=== PATIENT | female | born 1990 | race Caucasian/White ===

== ENCOUNTER 2019-01-11 18:43 | Emergency (ER) | payer BC, OTHER ==
[~2019-01-11] VITALS: Ht 162.6 cm; Wt 92.3 kg
[2019-01-11] MEDS ORDERED: POLYSPORIN TOPICAL OINTMENT 15GM TOP ONE (19:45)
[2019-01-11] MEDS ORDERED: CLOB0.0548 TOP (19:45)
[2019-01-11 19:56] VITALS: BP 130/96
== END 2019-01-11 20:00 | disposition home or self-care (01) ==
LOC: M ED 18:43
DX: S90.822A Blister (nonthermal), left foot, initial encounter (principal); L30.8 Other specified dermatitis; X58.XXXA Exposure to other specified factors, initial encounter; Y92.89 Other specified places as the place of occurrence of the external cause; Y93.9 Activity, unspecified; Y99.9 Unspecified external cause status

== ENCOUNTER → 2019-06-01 | Outpatient (REF) | payer OTHER ==
[~2019-06-01] MED LIST: CLOB0.0548 TOP
== END ==
LOC: M SFHCWAGY 09:39
PROVIDERS: ATTEND Advanced Practice Midwife
DX: Z12.4 Encounter for screening for malignant neoplasm of cervix (principal); R87.613 High grade squamous intraepithelial lesion on cytologic smear of cervix (HGSIL)

== ENCOUNTER → 2019-06-14 | Outpatient (CLI) | payer OTHER ==
[2019-06-14 11:48] LABS: HEMOGLOBIN 13.9 g/dl (12.0-15.5); MEAN CORPUSCULAR HEMOGLOBIN 28.7 pg (27.0-33.0); MEAN CORPUSCULAR HGB CONC 33.1 g/dl (32.0-36.5); MEAN CORPUSCULAR VOLUME 86.8 fl (80.0-96.0); PLATELET COUNT, AUTOMATED 338 10^3/uL (150-450); RED BLOOD COUNT 4.84 10^6/uL (4.00-5.40); WHITE BLOOD COUNT 8.1 10^3/uL (4.0-10.0)
[2019-06-14 12:17] LABS: FREE T4 1.22 NG/DL (0.76-1.46); THYROID STIMULATING HORMONE 0.859 uIU/ML (0.358-3.740)
[2019-06-16 14:09] LABS: TESTOSTERONE FREE (DIRECT) 5.1 pg/mL (0.0-4.2); VITAMIN D 1,25 DIHYDROXY 69.4 pg/mL (19.9-79.3)
== END ==
LOC: M PLALAB 08:48
PROVIDERS: ATTEND Advanced Practice Midwife
DX: N92.1 Excessive and frequent menstruation with irregular cycle (principal)

== ENCOUNTER → 2019-06-14 | Outpatient (CLI) | payer OTHER ==
--- NOTE | 2019-06-14 10:07 | REP ---
PELVIC SONOGRAPHY: HISTORY: Heavy irregular menstrual cycles. FINDINGS: Transabdominal and transvaginal scanning are performed. Uterine dimensions are normal at 8.6 x 4.3 x 5.6 cm. Endometrial echo is 0.5 cm thick and centrally placed. No focal uterine mass lesion is seen. Right ovary measures 2.7 x 2.2 x 2.0 cm. It has a normal appearance. Doppler flow is present in the right ovary. Left ovary dimensions are 3.1 x 2.3 x 2.8 cm. Doppler flow is present in the left ovary. There is a 4.0 x 2.9 x 3.7 cm cyst anterolateral to the left ovary. IMPRESSION: Simple appearing 4.0 cm cyst anterolaterally adjacent to the left ovary. Otherwise negative pelvic sonography.
== END ==
LOC: M WHC 08:00
PROVIDERS: ATTEND Advanced Practice Midwife
DX: N83.202 Unspecified ovarian cyst, left side (principal)

== ENCOUNTER → 2019-06-30 | Outpatient (REF) | payer OTHER | LOC: M PLALAB 15:10 | PROVIDERS: ATTEND Advanced Practice Midwife | DX: E28.2 Polycystic ovarian syndrome (principal); R87.613 High grade squamous intraepithelial lesion on cytologic smear of cervix (HGSIL) ==

== ENCOUNTER → 2019-07-04 | Outpatient (REF) | payer OTHER ==
[2019-07-04 18:30] LABS: HEMOGLOBIN A1c 5.4 %
== END ==
LOC: M PLALAB 16:51
PROVIDERS: ATTEND Advanced Practice Midwife
DX: E28.2 Polycystic ovarian syndrome (principal)

== ENCOUNTER → 2019-07-28 | Outpatient (REF) | payer OTHER | LOC: M SFHCWAGY 16:51 | PROVIDERS: ATTEND Obstetrics & Gynecology | DX: R87.613 High grade squamous intraepithelial lesion on cytologic smear of cervix (HGSIL) (principal) ==

== ENCOUNTER → 2020-06-14 | Outpatient (REF) | payer OTHER | LOC: M SFHCWAGY 19:02 | PROVIDERS: ATTEND Advanced Practice Midwife | DX: Z01.411 Encounter for gynecological examination (general) (routine) with abnormal findings (principal) ==

== ENCOUNTER → 2021-01-30 | Outpatient (REF) | payer OTHER ==
[2021-01-30 13:53] LABS: APPEARANCE, URINE CLEAR (CLEAR); BACTERIA, URINE AUTO NEGATIVE (NEGATIVE); BILIRUBIN, URINE AUTO NEGATIVE (NEGATIVE); BLOOD, URINE BLOOD NEGATIVE (NEGATIVE); COLOR, URINE COLORLESS (YELLOW); GLUCOSE, URINE (UA) AUTO NEGATIVE (NEGATIVE); KETONE, URINE AUTO NEGATIVE (NEGATIVE); LEUKOCYTE ESTERASE, URINE AUTO NEGATIVE (NEGATIVE); NITRITE, URINE AUTO NEGATIVE (NEGATIVE); PROTEIN, URINE AUTO NEGATIVE (NEGATIVE); RBC, URINE AUTO 0 /HPF (0-3); SPECIFIC GRAVITY URINE AUTO 1.001 (1.002-1.035); SQUAMOUS EPITHELIAL CELL UR AU 1 /HPF (0-6); UROBILINOGEN, URINE AUTO 0.2 mg/dL (0.0-2.0); WBC, URINE AUTO 0 /HPF (0-3)
== END ==
LOC: M LAB REF 12:41
PROVIDERS: ATTEND Physician Assistant
DX: R30.0 Dysuria (principal)

== ENCOUNTER → 2021-04-04 | Outpatient (REF) | LOC: M EMP 08:42 | PROVIDERS: ATTEND Family Medicine | DX: Z20.822 Contact with and (suspected) exposure to COVID-19 (principal) ==

== ENCOUNTER → 2021-04-17 | Outpatient (REF) | LOC: M EMP 13:28 | PROVIDERS: ATTEND Family Medicine | DX: Z11.52 Encounter for screening for COVID-19 (principal) ==

== ENCOUNTER → 2021-06-18 | Outpatient (REF) | payer OTHER | LOC: M PLALAB 08:41 | PROVIDERS: ATTEND Advanced Practice Midwife | DX: Z12.4 Encounter for screening for malignant neoplasm of cervix (principal); R87.613 High grade squamous intraepithelial lesion on cytologic smear of cervix (HGSIL); R87.810 Cervical high risk human papillomavirus (HPV) DNA test positive ==

== ENCOUNTER → 2021-08-06 | Outpatient (REF) | payer OTHER | LOC: M SFHCWAGY 17:29 | PROVIDERS: ATTEND Obstetrics & Gynecology | DX: Z12.4 Encounter for screening for malignant neoplasm of cervix (principal) ==

== ENCOUNTER → 2021-08-06 | Outpatient (REF) | payer OTHER | LOC: M PLALAB 15:27 | PROVIDERS: ATTEND Obstetrics & Gynecology | DX: Z53.20 Procedure and treatment not carried out because of patient's decision for unspecified reasons (principal) ==

== ENCOUNTER → 2021-09-08 | Outpatient (REF) | payer OTHER | LOC: M SFHCWAGY 17:13 | PROVIDERS: ATTEND Obstetrics & Gynecology | DX: R87.613 High grade squamous intraepithelial lesion on cytologic smear of cervix (HGSIL) (principal) ==

== ENCOUNTER → 2022-04-24 | Outpatient (CLI) | payer OTHER ==
[2022-04-24 14:12] LABS: HEMATOCRIT 43.5 % (36.0-47.0); HEMOGLOBIN 14.4 g/dl (12.0-15.5); MEAN CORPUSCULAR HEMOGLOBIN 29.8 pg (27.0-33.0); MEAN CORPUSCULAR HGB CONC 33.1 g/dl (32.0-36.5); MEAN CORPUSCULAR VOLUME 89.9 fl (80.0-96.0); PLATELET COUNT, AUTOMATED 253 10^3/uL (150-450); RED BLOOD COUNT 4.84 10^6/uL (4.00-5.40); WHITE BLOOD COUNT 11.1 10^3/uL (4.0-10.0)
[2022-04-24 15:10] LABS: HIV 1&2 SCREEN CENTAUR NEGATIVE (NEGATIVE)
[2022-04-24 15:19] LABS: HEPATITIS C VIRUS ABY INDEX 0.1 INDEX (<0.8)
== END ==
LOC: M PLALAB 10:51
PROVIDERS: ATTEND Advanced Practice Midwife
DX: O34.41 Maternal care for other abnormalities of cervix, first trimester (principal); Z3A.00 Weeks of gestation of pregnancy not specified

== ENCOUNTER → 2022-05-27 | Outpatient (REF) | payer OTHER | LOC: M SFHCWAGY 12:55 | PROVIDERS: ATTEND Advanced Practice Midwife | DX: O34.41 Maternal care for other abnormalities of cervix, first trimester (principal); Z3A.00 Weeks of gestation of pregnancy not specified ==

== ENCOUNTER → 2022-06-22 | Outpatient (CLI) | payer OTHER | LOC: M WHC 10:13 | PROVIDERS: ATTEND Obstetrics & Gynecology | DX: Z34.93 Encounter for supervision of normal pregnancy, unspecified, third trimester (principal); Z3A.20 20 weeks gestation of pregnancy ==

== ENCOUNTER → 2022-07-17 | Outpatient (CLI) | payer OTHER | LOC: M WHC 12:00 | PROVIDERS: ATTEND Obstetrics & Gynecology | DX: Z36.2 Encounter for other antenatal screening follow-up (principal) ==

== ENCOUNTER → 2022-08-19 | Outpatient (CLI) | payer OTHER ==
[2022-08-19 09:18] LABS: HEMATOCRIT 36.4 % (36.0-47.0); MEAN CORPUSCULAR HEMOGLOBIN 30.7 pg (27.0-33.0); MEAN CORPUSCULAR VOLUME 93.1 fl (80.0-96.0); PLATELET COUNT, AUTOMATED 223 10^3/uL (150-450); RED BLOOD COUNT 3.91 10^6/uL (4.00-5.40); WHITE BLOOD COUNT 11.6 10^3/uL (4.0-10.0)
[2022-08-19 11:04] LABS: GC DNA AMPLIFICATION NEGATIVE (NEGATIVE)
== END ==
LOC: M LAB 07:27
PROVIDERS: ATTEND Obstetrics & Gynecology
DX: Z34.92 Encounter for supervision of normal pregnancy, unspecified, second trimester (principal)

== ENCOUNTER → 2022-08-21 | Outpatient (CLI) | payer OTHER | LOC: M LAB 07:39 | PROVIDERS: ATTEND Obstetrics & Gynecology | DX: O99.810 Abnormal glucose complicating pregnancy (principal); Z3A.00 Weeks of gestation of pregnancy not specified ==

== ENCOUNTER → 2022-09-15 | Outpatient (REF) | LOC: M EMP 10:54 | PROVIDERS: ATTEND Family Medicine | DX: Z20.822 Contact with and (suspected) exposure to COVID-19 (principal) ==

== ENCOUNTER → 2022-10-21 | Outpatient (REF) | payer OTHER | LOC: M PLALAB 15:34 | PROVIDERS: ATTEND Advanced Practice Midwife | DX: O09.293 Supervision of pregnancy with other poor reproductive or obstetric history, third trimester (principal) ==

== ENCOUNTER → 2022-10-21 | Outpatient (CLI) | payer OTHER ==
[~2022-10-21] MED LIST changes: +PRENTAB9 PO; +TUMS500C PO
[2022-10-21 18:00] LABS: HEMATOCRIT 36.3 % (36.0-47.0); HEMOGLOBIN 11.8 g/dl (12.0-15.5); MEAN CORPUSCULAR HEMOGLOBIN 27.8 pg (27.0-33.0); MEAN CORPUSCULAR HGB CONC 32.5 g/dl (32.0-36.5); MEAN CORPUSCULAR VOLUME 85.4 fl (80.0-96.0); PLATELET COUNT, AUTOMATED 247 10^3/uL (150-450); RED BLOOD COUNT 4.25 10^6/uL (4.00-5.40); WHITE BLOOD COUNT 14.4 10^3/uL (4.0-10.0)
[2022-10-21 18:20] LABS: URIC ACID 4.3 MG/DL (3.1-7.8)
[2022-10-21 18:22] LABS: LDH LACTATE DEHYDROGENASE 188 U/L (120-246)
[2022-10-21 18:23] LABS: ALT/SGPT 13 U/L (7.0-40); AST/SGOT < 8 U/L (<34); BILIRUBIN,TOTAL 0.4 MG/DL (0.3-1.2); CREATININE FOR GFR 0.57 MG/DL (0.55-1.30); GLOMERULAR FILTRATION RATE > 60.0 (>60)
[2022-10-21 18:29] LABS: TOTAL PROTEIN,RANDOM URINE < 6.0 MG/DL (0.0-14.0)
== END ==
LOC: M LAB 16:32
PROVIDERS: ATTEND Advanced Practice Midwife
DX: O16.3 Unspecified maternal hypertension, third trimester (principal); Z3A.00 Weeks of gestation of pregnancy not specified

== ENCOUNTER → 2022-10-23 | Outpatient (CLI) | payer MEDICAID, OTHER | LOC: M WHC 09:09 | PROVIDERS: ATTEND Obstetrics & Gynecology | DX: O26.843 Uterine size-date discrepancy, third trimester (principal); Z3A.38 38 weeks gestation of pregnancy ==

== ENCOUNTER 2022-10-26 07:20 | Inpatient (IN) | payer MEDICAID ==
[~2022-10-26] VITALS: Ht 160 cm; Wt 101.8 kg
[2022-10-26] VITALS (13 sets, daily range): BP systolic 126–145; BP diastolic 81–95
[~2022-10-26 07:20] MED LIST changes: -PRENTAB9 PO; -TUMS500C PO
[2022-10-26] MEDS ORDERED: LIDOCAINE 1% MDV 20ML VIAL INFIL PRN (07:35)
[2022-10-26] MEDS ORDERED: OXYTOCIN INJ 10UNITS/ML 1ML VIAL IM PRN (07:35)
[2022-10-26] MEDS ORDERED: LACTATED RINGER'S 1000 ML IV STA (07:35)
[2022-10-26] MEDS ORDERED: TRANEXAMIC ACID INJection 1,000 MG in NS 100 ML IV PRN (07:35)
[2022-10-26] MEDS ORDERED: OXYTOCIN DRIP 30 UNITS in IV 1 EA IV PRN (07:35)
[2022-10-26] MEDS ORDERED: CARBOPROST TROMETHAMINE 250 MCG/ML AMP IM PRN (07:35)
[2022-10-26] MEDS ORDERED: PRENTAB9 PO (08:23)
[2022-10-26] MEDS ORDERED: TUMS500C PO (08:23)
[2022-10-26] MEDS ORDERED: HOME MED LIST COMPLETE! XX SCH (08:25)
[2022-10-26] MEDS: miSOPROStol 50MCG 1/2 TABLET PO SCH ×4 (08:59→21:40)
[2022-10-26 09:28] LABS: TOTAL PROTEIN,RANDOM URINE 15.5 MG/DL (0.0-14.0)
[2022-10-26 09:29] LABS: HEMATOCRIT 33.9 % (36.0-47.0); MEAN CORPUSCULAR HEMOGLOBIN 27.4 pg (27.0-33.0); MEAN CORPUSCULAR HGB CONC 32.4 g/dl (32.0-36.5); MEAN CORPUSCULAR VOLUME 84.5 fl (80.0-96.0); PLATELET COUNT, AUTOMATED 218 10^3/uL (150-450); RED BLOOD COUNT 4.01 10^6/uL (4.00-5.40); WHITE BLOOD COUNT 11.1 10^3/uL (4.0-10.0)
[2022-10-26 09:31] LABS: URIC ACID 5.2 MG/DL (3.1-7.8)
[2022-10-26 09:33] LABS: LDH LACTATE DEHYDROGENASE 169 U/L (120-246)
[2022-10-26 09:34] LABS: ALT/SGPT 11 U/L (7.0-40); AST/SGOT 14 U/L (<34); BILIRUBIN,TOTAL 0.4 MG/DL (0.3-1.2); CREATININE FOR GFR 0.55 MG/DL (0.55-1.30); GLOMERULAR FILTRATION RATE > 60.0 (>60)
[2022-10-27] VITALS (47 sets, daily range): BP systolic 105–154; BP diastolic 56–100; O2SAT 97–98
[2022-10-27] MEDS ORDERED: OXYTOCIN DRIP 30 UNITS in IV 1 EA IV SCH (00:30)
[2022-10-27] MEDS ORDERED: NALOXONE INJ 0.4MG/1ML VIAL IV PRN (01:55)
[2022-10-27] MEDS ORDERED: ePHEDrine SULFATE 25 MG/5 ML(5MG/ML) SYRINGE IVP PRN (01:55)
[2022-10-27] MEDS ORDERED: FENTANYL/ROPIVACAINE/NACL BAG 100 ML EPIDURAL SCH (01:55)
[2022-10-27] MEDS ORDERED: ONDANSETRON 4MG 2ML VIAL IV PRN (01:55)
[2022-10-27] MEDS ORDERED: LR 500 ML IV PRN (01:55)
[2022-10-27] MEDS ORDERED: EPIDURAL/PCA KEYS XX PRN (01:55)
[2022-10-27] MEDS ORDERED: diphenhydrAMINE 50MG/ML VIAL IV PRN (01:55)
[2022-10-27] MEDS: LR 1,000 ML IV SCH ×2 (03:05→05:33)
[2022-10-27 08:32] LABS: CORD GAS ABE A -7.5; CORD GAS HCO3 A 22.2 MMOL/L; CORD GAS O2 SAT A 49.6 %; CORD GAS PCO2 A 63.1 mmHg; CORD GAS PH A 7.165 UNITS; CORD GAS PO2 A 25.4 mmHg; CORD GAS SBC A 17.4 MMOL/L; CORD GAS TCO2 A 24.2 MMOL/L
[2022-10-27 08:33] LABS: CORD GAS ABE V -3.9; CORD GAS HCO3 V 22.1 MMOL/L; CORD GAS O2 SAT V 57.6 %; CORD GAS PCO2 V 43.5 mmHg; CORD GAS PH V 7.324 UNITS; CORD GAS PO2 V 24.4 mmHg; CORD GAS SBC V 20.4 MMOL/L; CORD GAS TCO2 V 23.4 MMOL/L
[2022-10-27] MEDS ORDERED: RHOGAM 300MCG (1500IU) INJ IM SCH (09:05)
[2022-10-27] MEDS ORDERED: DIBUCAINE 1% OINTMENT 30GM TOP PRN (09:05)
[2022-10-27] MEDS ORDERED: DOCUSATE SODIUM 100MG CAPSULE PO PRN (09:05)
[2022-10-27] MEDS ORDERED: ACETAMINOPHEN TAB 650MG DOSE (2X325MG) PO PRN (09:05)
[2022-10-27] MEDS ORDERED: ANUSOL HC CREAM 30GM TOP PRN (09:05)
[2022-10-27] MEDS ORDERED: IBUPROFEN 600MG TAB PO PRN (09:05)
[2022-10-27] MEDS ORDERED: MOM 30ML SUSPENSION UDC PO PRN (09:05)
[2022-10-27] MEDS ORDERED: ACETAMINOPHEN 500 MG TAB PO PRN (09:05)
[2022-10-27] MEDS: IBUPROFEN 800 MG TAB PO PRN ×2 (10:32→18:56)
[2022-10-27] MEDS: PRENATAL VITAMINS CHEWABLE TABLET PO SCH (11:19)
[2022-10-27] MEDS ORDERED: BOOSTRIX VACCINE (TETANUS/DIPHTH/ACEL. PERTUSSIS) 0.5ML SYR IM.IMMUN ONE (11:30)
[2022-10-28 06:00] VITALS: BP 127/78; O2SAT 99
[2022-10-28] MEDS: PRENATAL VITAMINS CHEWABLE TABLET PO SCH (08:37)
[2022-10-28] MEDS: IBUPROFEN 800 MG TAB PO PRN ×2 (08:38→14:16)
[2022-10-28 08:40] VITALS: BP 127/78; TEMP 97.4; O2SAT 99
[2022-10-29] MEDS ORDERED: MEASLES,MUMPS,RUBELLA VACCINE INJ (MMR-II) SC.IMMUN ONE (09:00)
== END 2022-10-28 15:00 | disposition home or self-care (01) | DRG 560 ==
LOC: M LDI 07:20 → M OBS 10-27 10:45
PROVIDERS: ADMIT Advanced Practice Midwife; ATTEND Advanced Practice Midwife
PROC: 3E033VJ Introduction of Other Hormone into Peripheral Vein, Percutaneous Approach (ICD-10-PCS; 2022-10-26)
PROC: 3E0P7VZ Introduction of Hormone into Female Reproductive, Via Natural or Artificial Opening (ICD-10-PCS; 2022-10-26)
PROC: 10E0XZZ Delivery of Products of Conception, External Approach (ICD-10-PCS; principal; 2022-10-27)
PROC: 0HQ9XZZ Repair Perineum Skin, External Approach (ICD-10-PCS; 2022-10-27)
DX: O13.4 Gestational [pregnancy-induced] hypertension without significant proteinuria, complicating childbirth (principal); O69.82X0 Labor and delivery complicated by other cord entanglement, without compression, not applicable or unspecified; Z37.0 Single live birth; Z3A.37 37 weeks gestation of pregnancy; O70.0 First degree perineal laceration during delivery

== ENCOUNTER → 2023-09-21 | Outpatient (CLI) | payer OTHER ==
[~2023-09-21] MED LIST changes: +PRENTAB9 PO; +TUMS500C PO
[2023-09-21 15:01] LABS: HEMATOCRIT 39.8 % (36.0-47.0); HEMOGLOBIN 12.4 g/dl (12.0-15.5); MEAN CORPUSCULAR HEMOGLOBIN 24.9 pg (27.0-33.0); MEAN CORPUSCULAR HGB CONC 31.2 g/dl (32.0-36.5); MEAN CORPUSCULAR VOLUME 79.9 fl (80.0-96.0); PLATELET COUNT, AUTOMATED 315 10^3/uL (150-450); RED BLOOD COUNT 4.98 10^6/uL (4.00-5.40); WHITE BLOOD COUNT 9.8 10^3/uL (4.0-10.0)
[2023-09-21 15:30] LABS: FREE T4 1.03 NG/DL (0.89-1.76); THYROID STIMULATING HORMONE 1.402 uIU/ML (0.55-4.78)
== END ==
LOC: M RAD 13:51
PROVIDERS: ATTEND Obstetrics & Gynecology
DX: N93.9 Abnormal uterine and vaginal bleeding, unspecified (principal)

== ENCOUNTER → 2024-06-27 | Outpatient (REF) | payer OTHER ==
[~2024-06-27] MED LIST changes: +PHEN37.58 PO
== END ==
LOC: M SFHCWAGY 13:04
PROVIDERS: ATTEND Obstetrics & Gynecology
DX: Z12.4 Encounter for screening for malignant neoplasm of cervix (principal); R87.610 Atypical squamous cells of undetermined significance on cytologic smear of cervix (ASC-US)

== ENCOUNTER → 2025-03-22 | Outpatient (RCR) | LOC: M EMPSKH 03-04 07:51 | PROVIDERS: ATTEND Family Medicine | DX: Z20.828 Contact with and (suspected) exposure to other viral communicable diseases (principal) ==